=== PATIENT | male | born 1955 | race Caucasian/White ===

== ENCOUNTER 2018-08-22 07:23 | Emergency (ER) | payer OTHER ==
[~2018-08-22] VITALS: Ht 182.9 cm; Wt 111.1 kg
[~2018-08-22 07:23] MED LIST: ASPIRIN81 M2 PO; ERYTHROMYCIN E3.5 G3 OPHTHALMIC; LIPITOR 20 MG T20 M1 PO
[2018-08-22 07:34] LABS: URINE BILIRUBIN NEGATIVE (Negative); URINE BLOOD NEGATIVE (Negative); URINE CLARITY CLEAR; URINE COLOR YELLOW; URINE GLUCOSE-RANDOM NEGATIVE (Negative); URINE KETONES NEGATIVE (Negative); URINE LEUKOCYTES-REFLEX NEGATIVE (Negative); URINE NITRITE-REFLEX NEGATIVE (Negative); URINE PROTEIN NEGATIVE (Negative); URINE SPECIFIC GRAVITY >= 1.030 (1.005-1.030); URINE UROBILINOGEN 0.2 E.U./dl (0.2-1.0)
[2018-08-22] MEDS ORDERED: PRISTIQ50 M1 PO (07:34)
[2018-08-22] MEDS ORDERED: MOBIC15 MG PO (07:34)
[2018-08-22] MEDS ORDERED: PREVACID15 MG PO (07:34)
[2018-08-22] MEDS ORDERED: LISINOPRIL40 MG PO (07:35)
[2018-08-22] MEDS ORDERED: ZETIA10 MG PO (07:35)
[2018-08-22] MEDS ORDERED: NORCO 5-325 TA1 EACH PO (08:35)
[2018-08-22] MEDS ORDERED: FLEXERIL PO (08:35)
[2018-08-22 08:43] VITALS: BP 168/95
== END 2018-08-22 08:43 | disposition home or self-care (01) ==
LOC: M.ERS 07:23
PROVIDERS: Family Medicine
DX: M54.5 Low back pain (principal); F17.200 Nicotine dependence, unspecified, uncomplicated; Z88.0 Allergy status to penicillin

== ENCOUNTER → 2018-08-24 | Outpatient (CLI) | payer OTHER ==
[~2018-08-24] MED LIST changes: +FLEXERIL PO; +LISINOPRIL40 MG PO; +MOBIC15 MG PO; +NORCO 5-325 TA1 EACH PO; +PREVACID15 MG PO; +PRISTIQ50 M1 PO; +ZETIA10 MG PO
== END ==
LOC: M.CT 07:51
DX: Z13.6 Encounter for screening for cardiovascular disorders (principal)

== ENCOUNTER → 2018-09-25 | Outpatient (CLI) | payer OTHER ==
[~2018-09-25] VITALS: Ht 182.9 cm; Wt 111.1 kg
[2018-09-25] VITALS (9 sets, daily range): BP systolic 124–156; BP diastolic 79–90
[~2018-09-25] MED LIST changes: +NITROGLYCERIN0.4 MG SUBLING; +PLAVIX 75 MG TA75 M1 PO
[2018-09-25 09:17] LABS: HEMATOCRIT 51.7 % (42.0-52.0); HEMOGLOBIN 17.7 gm/dL (14.0-18.0); MCH 31.6 pg (26.0-34.0); MCHC 34.2 g/dL (28.0-37.0); MCV 92.6 fL (80.0-100.0); MPV 11.1 fl. (7.2-11.1); RBC 5.59 mil/uL (4.50-6.00); RDW-CV 13.3 % (10.5-14.5); WBC 7.6 thou/uL (4.0-11.0)
[2018-09-25 09:27] LABS: APTT 28.9 Seconds (25.0-31.3); PROTIME 10.2 Seconds (9.20-11.50)
[2018-09-25 10:40] LABS: ALBUMIN 3.9 g/dL (3.4-5.0); ALKALINE PHOSPHATASE 103 U/L (46-116); ANION GAP 11 mmol/L (7-16); BUN 19 mg/dL (7-18); CALCIUM 9.5 mg/dL (8.5-10.1); CHLORIDE 104 mmol/L (98-107); CHOLESTEROL 137 mg/dL (<200); CO2 26 mmol/L (21-32); GLUCOSE 98 mg/dL (70-99); HDL CHOLESTEROL 38 mg/dL (>40); LDL CHOLESTEROL 82 mg/dL (<100); POTASSIUM 4.2 mmol/L (3.5-5.1); SGOT 23 U/L (15-37); SGPT 58 U/L (30-65); SODIUM 141 mmol/L (136-145); TC:HDL 3.6 Ratio (Not establshd); TOTAL BILIRUBIN 0.5 mg/dL (<0.1-1.0); TOTAL PROTEIN 7.6 g/dL (6.4-8.2); TRIGLYCERIDE 86 mg/dL (<150); VLDL 17 mg/dL (<40)
[2018-09-25 10:46] LABS: SERUM ASSESSMENT Clear
[2018-09-25 12:21] LABS: HEMATOCRIT 47.2 % (42.0-52.0); HEMOGLOBIN 16.2 gm/dL (14.0-18.0); MCH 31.6 pg (26.0-34.0); MCHC 34.3 g/dL (28.0-37.0); MCV 92.2 fL (80.0-100.0); MPV 10.5 fl. (7.2-11.1); RBC 5.12 mil/uL (4.50-6.00); RDW-CV 13.3 % (10.5-14.5); WBC 8.2 thou/uL (4.0-11.0)
[2018-09-25 12:38] LABS: ANION GAP 6 mmol/L (7-16); BUN 16 mg/dL (7-18); CHLORIDE 103 mmol/L (98-107); CO2 28 mmol/L (21-32); GLUCOSE 142 mg/dL (70-99); POTASSIUM 4.4 mmol/L (3.5-5.1); SODIUM 137 mmol/L (136-145); TROPONIN-I LEVEL <0.06 ng/mL (<0.06)
--- NOTE | 2018-09-25 15:41 | EKG ---
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
--- NOTE | 2018-09-25 15:46 | EKG ---
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: [facility] : 1955 Requested By: Abelardo Owens Order Number: [id number] Stoney MD: Abelardo Owens Measurements Intervals [place] Rate: 72 P: 76 NV: 187 QRS: 51 QRSD: 112 T: 47 QT: 370 QTc: 405 Interpretive Statements Sinus rhythm Atrial premature complex Borderline intraventricular conduction delay Borderline ST elevation, anterior leads Electronically Signed On 09-25-2018 15:46:34 SILVER PLATER by Abelardo Owens [email or web address] <ELECTRONICALLY SIGNED> By: Abelardo Owens MD, [facility] 09/25/18 1546 1251 1251 Abelardo Owens MD, FACC /EPI
--- NOTE | 2018-09-25 16:38 | CARD ---
[address] [address] CARDIAC CATH REPORT Name: JONATHAN VALLE Room: [facility] Carrillo#: [id number] Admission: 09/25/18 Attend Phys: Abelardo Owens MD, F Discharge: Date of : 57 Report #: [id number] THIS REPORT FOR: //name// APPROVED REPORT Study performed: 09/25/2018 08:55:03 Patient Details Patient Status: Out-Patient Room #: The patient is a 63 year-old male Event Personnel Abelardo Owens Set Up And Lay Out Inspector, Ayesha Foy RN Kettle Cleaner, Yovani Diehl, Liban Chester (R) Scrub Procedures Performed Left Heart Cath w/or w/o Coronaries [id number] [facility] Place w/wo Plasty Single RCA [id number] , Complete Heart Catheterization Indication Dyspnea Risk Factors Arterial Hypertension, Hypercholesterolemia, Coronary Artery Disease, Tobacco History () Admission/Lab Medications/Medications given during procedure Glycoprotein IllbIlla Inhibitors, Heparin Unfract., Fentanyl IV 25 mcg, Midazolam (Versed) IV 2 mg, Lidocaine Subcut 2 ml, Nitroglycerin IA 200 mcg, Verapamil IA 2.5 mg, Heparin IV 5000 units, Plavix PO 600 mg, Aggrastat IV 10.9 mcg per min, Verapamil IC 2.5 mcg Procedure Narrative The patient was brought electively to the Cardiac Catheterization Laboratory and was prepped and draped in a sterile manner. The right wrist was infiltrated with 1% Lidocaine subcutaneous anesthesia. A Slender Glidesheath sheath was inserted into the RRA. Coronary angiography was performed using coronary diagnostic catheters. The right coronary system was accessed and visualized with a JR4 catheter. The left coronary system was accessed and visualized with a JL4 catheter. The left ventricle was accessed and visualized with a Angled PIG catheter. Left ventricular/Aortic Valve gradient assessed via catheter pullback. [place] [address] CARDIAC CATH REPORT Name: JONATHAN VALLE Room: [facility]#: [id number] Admission: 09/25/18 Attend Phys: Abelardo Owens MD, F Discharge: Date of : 57 Report #: [id number] projection. Closure device was deployed with a 6 Fr vascband. The patient tolerated the procedure well and there were no complications associated with the procedure. There was no hematoma. Intraoperative Conscious Sedation Fentanyl 25 mcg Fluoro Time: 4.8 minutes Dose: DAP 61032 cGycm2 96.1 mGy Contrast Type and Amount: Visipaque 200 ml Coronary Angiography The patient's coronary anatomy is right dominant. Diagnostic Cath Left Main 30% mid stenosis LAD 50% mid stenosis Circumflex 30% proximal stenosis Right Coronary 80% mid stenosis R PDA 50% ostial stenosis Left Ventriculography The left ventricle is normal in size with normal contractility. The left ventricular ejection fraction is estimated to be 60-65%. Left ventricular wall motion abnormalities are not present. There is no mitral insufficiency. Hemodynamics The aortic pressure is 110/69 mmHg with a mean of 86 mmHg. The left ventricular pressure is 123/10 mmHg with a mean of mmHg. The left ventricular end diastolic pressure is 10 mmHg. There was no gradient across the aortic valve upon pullback. Pullback from the left ventricle to the aorta revealed no gradient across the aortic valve. PCI Technique Lesion Anticoagulation was achieved with Heparin. bolus of IV aggrastat given Percutaneous coronary intervention was performed on the mid right coronary artery. The lesion stenosis prior to intervention was 80% with BRAXTON 3 flow. A 6F JR 4.0 Guide Catheter was used to engage the right ostium. A IG: BMW 190cm Interventional Guidewire was used to cross the lesion. BALLOON DILATION A Balloon catheter Trek RX 2.5 X 8 was inserted and inflated up to 20.00atm for 12seconds. Repeat angiography [place] [address] CARDIAC CATH REPORT Name: JONATHAN VALLE Room: [facility]#: [id number] Admission: 09/25/18 Attend Phys: Abelardo Owens MD, F Discharge: Date of : 57 Report #: [id number] post-dilatation results: 30% stenosis. STENT DEPLOYMENT A drug-eluting stent Xience Nallely 3.5X15mm was inserted and inflated up to 20.00atm for 17seconds. Repeat angiography revealed the following post-stent deployment results: 0% stenosis. Additional Inflation: 22.00atm for 13seconds. Final angiography reveals 0 % stenosis with BRAXTON 3 flow. Conclusion 1. 80% stenosis noted of the mid rca 2. successful placement of a single drug eluting stent in the mid rca 3. normal LV function Recommendations Cardiac Rehabilitation Referral Aggressive Medical Therapy Medications Administered Clopidogrel <ELECTRONICALLY SIGNED> By: Abelardo Owens MD, [facility] 09/25/18 1638 1638 1638Abelardo Owens MD, [facility] /INF
== END | disposition home or self-care (01) ==
LOC: M.CL 08:32
PROVIDERS: Internal Medicine Cardiovascular Disease
DX: I25.10 Atherosclerotic heart disease of native coronary artery without angina pectoris (principal); I25.82 Chronic total occlusion of coronary artery; I10 Essential (primary) hypertension; E78.00 Pure hypercholesterolemia, unspecified; F17.210 Nicotine dependence, cigarettes, uncomplicated; Z98.890 Other specified postprocedural states; Z79.899 Other long term (current) drug therapy; Z88.0 Allergy status to penicillin; Z79.01 Long term (current) use of anticoagulants

== ENCOUNTER 2019-09-24 16:12 | Emergency (ER) | payer OTHER ==
[~2019-09-24] VITALS: Ht 182.9 cm; Wt 101.2 kg
[2019-09-24] MEDS ORDERED: ACYCLOVIR 800800 MG PO (16:28)
[2019-09-24] MEDS ORDERED: ZYRTEC10 M5 PO (16:29)
[2019-09-24] MEDS ORDERED: BUTALB-APAP-CA1 EACH PO (16:29)
[2019-09-24 17:28] VITALS: BP 99/59
== END 2019-09-24 17:11 | disposition home or self-care (01) ==
LOC: M.ERS 16:12
DX: T82.848A Pain due to vascular prosthetic devices, implants and grafts, initial encounter (principal); I10 Essential (primary) hypertension; I25.10 Atherosclerotic heart disease of native coronary artery without angina pectoris; E78.00 Pure hypercholesterolemia, unspecified; F17.210 Nicotine dependence, cigarettes, uncomplicated; Z95.5 Presence of coronary angioplasty implant and graft; Z88.0 Allergy status to penicillin

== ENCOUNTER → 2021-05-30 | Outpatient (CLI) | payer OTHER ==
[~2021-05-30] MED LIST changes: +ACYCLOVIR 800800 MG PO; +BUTALB-APAP-CA1 EACH PO; +ZYRTEC10 M5 PO
== END ==
LOC: M.LAB 09:20
PROVIDERS: ATTEND Internal Medicine Gastroenterology
DX: Z01.812 Encounter for preprocedural laboratory examination (principal); Z20.822 Contact with and (suspected) exposure to COVID-19